=== PATIENT | female | born 1955 | race Hispanic/Latino ===

== ENCOUNTER → 2017-07-14 | Outpatient (CLI) | payer OTHER | END | disposition home or self-care (01) | LOC: RAH 10:08 | PROVIDERS: ATTEND Internal Medicine | DX: Z12.31 Encounter for screening mammogram for malignant neoplasm of breast (principal) | CPT/HCPCS: 77067 ==

== ENCOUNTER → 2017-07-22 | Outpatient (CLI) | payer OTHER | END | disposition home or self-care (01) | LOC: RAH 12:40 | PROVIDERS: ATTEND Internal Medicine | DX: R92.8 Other abnormal and inconclusive findings on diagnostic imaging of breast (principal) | CPT/HCPCS: 76641; 77065 ==

== ENCOUNTER → 2019-05-26 | Outpatient (CLI) | payer MEDICARE | END | disposition home or self-care (01) | LOC: OIH 10:07 | PROVIDERS: ATTEND Internal Medicine | DX: M47.26 Other spondylosis with radiculopathy, lumbar region (principal); M25.552 Pain in left hip; M54.12 Radiculopathy, cervical region | CPT/HCPCS: 72040; 72100; 73502 ==

== ENCOUNTER → 2019-10-26 | Outpatient (CLI) | payer MEDICARE | END | disposition home or self-care (01) | LOC: RAH 08:34 | PROVIDERS: ATTEND Internal Medicine | DX: Z12.31 Encounter for screening mammogram for malignant neoplasm of breast (principal) | CPT/HCPCS: 77067 ==

== ENCOUNTER → 2020-10-25 | Outpatient (CLI) | payer MEDICARE | END | disposition home or self-care (01) | LOC: RAH 11:26 | PROVIDERS: ATTEND Internal Medicine | DX: Z12.31 Encounter for screening mammogram for malignant neoplasm of breast (principal) | CPT/HCPCS: 77067 ==

== ENCOUNTER → 2021-11-02 | Outpatient (CLI) | payer OTHER | END | disposition home or self-care (01) | LOC: RAH 08:20 | PROVIDERS: ATTEND Internal Medicine | DX: Z12.31 Encounter for screening mammogram for malignant neoplasm of breast (principal) | CPT/HCPCS: 77067 ==

== ENCOUNTER → 2022-10-25 | Outpatient (CLI) | payer OTHER | END | disposition home or self-care (01) | LOC: RAH 11:16 | PROVIDERS: ATTEND Internal Medicine | DX: S06.0XAA Concussion with loss of consciousness status unknown, initial encounter (principal); S06.0X9A Concussion with loss of consciousness of unspecified duration, initial encounter; S00.93XA Contusion of unspecified part of head, initial encounter; Z13.820 Encounter for screening for osteoporosis; X58.XXXA Exposure to other specified factors, initial encounter; Y93.89 Activity, other specified; Y92.89 Other specified places as the place of occurrence of the external cause; Y99.8 Other external cause status | CPT/HCPCS: 70450 ==

== ENCOUNTER → 2022-11-13 | Outpatient (CLI) | payer OTHER | END | disposition home or self-care (01) | LOC: RAH 13:56 | PROVIDERS: ATTEND Internal Medicine | DX: Z12.31 Encounter for screening mammogram for malignant neoplasm of breast (principal) | CPT/HCPCS: 77067 ==

== ENCOUNTER → 2023-05-28 | Outpatient (CLI) | payer OTHER | END | disposition home or self-care (01) | LOC: RAH 10:08 | PROVIDERS: ATTEND Internal Medicine | DX: M25.461 Effusion, right knee (principal); M25.462 Effusion, left knee; I73.9 Peripheral vascular disease, unspecified | CPT/HCPCS: 73560 ==

== ENCOUNTER → 2023-06-02 | Outpatient (CLI) | payer OTHER | END | disposition home or self-care (01) | LOC: RAH 14:28 | PROVIDERS: ATTEND Internal Medicine | DX: I70.203 Unspecified atherosclerosis of native arteries of extremities, bilateral legs (principal); M25.469 Effusion, unspecified knee | CPT/HCPCS: 93925 ==

== ENCOUNTER → 2023-07-14 | Outpatient (CLI) | payer OTHER | END | disposition home or self-care (01) | LOC: RAH 13:03 | PROVIDERS: ATTEND Internal Medicine Cardiovascular Disease | DX: Z13.6 Encounter for screening for cardiovascular disorders (principal); R93.1 Abnormal findings on diagnostic imaging of heart and coronary circulation | CPT/HCPCS: 75571 ==

== ENCOUNTER → 2023-11-17 | Outpatient (CLI) | payer OTHER | END | disposition home or self-care (01) | LOC: RAH 08:24 | PROVIDERS: ATTEND Internal Medicine | DX: Z12.31 Encounter for screening mammogram for malignant neoplasm of breast (principal) | CPT/HCPCS: 77067 ==

== ENCOUNTER → 2023-11-26 | Outpatient (CLI) | payer OTHER ==
[2023-11-26 13:53] LABS: BASOPHILS # (AUTO) 0.04 K/uL (0.00-0.20); BASOPHILS % (AUTO) 0.5 % (0.0-5.0); EOSINOPHILS # (AUTO) 0.21 K/uL (0.00-0.70); EOSINOPHILS % (AUTO) 2.5 % (0.0-8.0); IMMATURE GRANULOCYTE ABSOLUTE 0.06 K/uL (0-1); LYMPHOCYTES # (AUTO) 2.2 K/uL (1.0-4.8); LYMPHOCYTES % (AUTO) 25.1 % (21.0-51.0); MEAN CORPUSCULAR HEMOGLOBIN 31.2 pg (27.0-33.0); MEAN CORPUSCULAR HGB CONC 34.8 g/dL (32.0-36.0); MEAN CORPUSCULAR VOLUME 89.7 fL (79-99); MONOCYTES # (AUTO) 0.6 K/uL (0.1-1.0); MONOCYTES % (AUTO) 6.7 % (3.0-13.0); NEUTROPHILS # (AUTO) 5.5 K/uL (1.8-7.7); NEUTROPHILS % (AUTO) 64.5 % (40.0-77.0); PLATELET COUNT (AUTO) 196 K/uL (130-400); RED BLOOD CELL COUNT(AUTO) 4.68 MIL/uL (4.00-5.50); RED CELL DISTRIBUTION WIDTH 12.1 % (11.0-15.5); WHITE BLOOD COUNT (AUTO) 8.6 K/uL (4.8-10.8)
[2023-11-26 14:41] LABS: ALBUMIN 3.4 g/dL (3.5-5.0); BILIRUBIN,TOTAL 0.5 mg/dL (0.2-1.0); CREATININE 1.2 mg/dL (0.5-1.0); POTASSIUM 4.6 mmol/L (3.5-5.1); THYROID STIMULATING HORMONE 4.75 uIU/mL (0.36-3.74); TOTAL PROTEIN, SERUM 6.9 g/dL (6.0-8.3)
== END | disposition home or self-care (01) ==
LOC: LAB 13:30
PROVIDERS: ATTEND Internal Medicine
DX: I10 Essential (primary) hypertension (principal); I63.9 Cerebral infarction, unspecified; R20.0 Anesthesia of skin; E03.9 Hypothyroidism, unspecified
CPT/HCPCS: 36415; 80050; 80053; 84443; 85025

== ENCOUNTER → 2023-11-26 | Outpatient (CLI) | payer OTHER | END | disposition home or self-care (01) | LOC: RAH 13:07 | PROVIDERS: ATTEND Internal Medicine | DX: I63.9 Cerebral infarction, unspecified (principal); R20.0 Anesthesia of skin; I51.7 Cardiomegaly; I70.90 Unspecified atherosclerosis | CPT/HCPCS: 70450 ==

== ENCOUNTER 2024-07-25 11:37 | Emergency (ER) | payer OTHER ==
[~2024-07-25] VITALS: Ht 172.7 cm; Wt 72.6 kg
--- NOTE | 2024-07-25 13:09 | NUR ---
ASSUMED CARE AT THIS TIME
--- NOTE | 2024-07-25 13:16 | ERN ---
ED Note History of Present Illness Stated Complaint: FEVER, COUGH Chief Complaint: Congestion Time Seen by MD: 11:38 Dictation: 68-year-old female with a history of DM presents to the ED for evaluation of cough on and off for the past four weeks. Patient reports nasal congestion, weakness and chest pain due to cough, but denies any other associated symptoms at this time. Patient believes she is dehydrated and feels like she might pass out. Patient mentioned she was seen by PCP and was prescribed Levaquin due to a yeast infection. Allergies: Coded Allergies: No Known Drug Allergies (Unverified Allergy, Unknown, 07/25/24) Home Meds Active Scripts Doxycycline Hyclate (Doxycycline Hyclate) 100 Mg Capsule, 1 CAP PO BID for 10 Days, #20 CAP 0 Refills Prov:GE QUIORGA MD 07/25/24 Past Medical History Past Medical History: Diabetes-Type II Surgical History: Hysterectomy Surgical History Other: CARDIAC STENTS Review of System Dictation Constitutional: Positive for weakness Negative for fever,chills, and weight loss Eyes: Negative for injury, pain,redness, and discharge ENT: Positive for nasal congestion Negative for injury,pain or swelling Cardiovascular: Negative for chest pain, palpitations, and edema Respiratory: Positive for cough, Negative for shortness of breath, and wheezing, Abdomen/GI: Negative for abdominal pain, nausea, vomiting, diarrhea, and constipation Back: Negative for injury and pain : Negative for injury, bleeding and discharge MS/Extremity: Negative for injury and deformity Skin: Negative for rash, and discoloration Neuro: Negative for headache, weakness, numbness, tingling, and seizure Psych: Negative for suicide ideation, homicidal ideation, and hallucinations Initial Vital Sign VS Vital Signs Date Time Temp Pulse Resp B/P (MAP) Pulse Ox O2 Delivery O2 Flow Rate FiO2 07/25/24 11:52 98.4 74 18 151/73 96 0 07/25/24 13:06 Room Air* 21 Physical Exam Dictation General: awake, alert, NAD Head/Face: Normocephalic, atraumatic Eyes: PERRL, EOMI, vision at baseline ENT: oral cavity clear, TMs clear, nasal congestion Neck: Trachea midline, supple, no nuchal rigidity Cardiovascular: RRR, normal S1/S2, No MRGs, no JVD Respiratory: CTAB, no respiratory distress, No rales or wheezes Abdomen: Soft, non-tender, non-distended, normal bowel sounds, no guarding or re bound. Skin: Warm, dry, normal turgor, no rash MS/Extremity: Pulses equal, no cyanosis, neurovascular intact, FROM Neuro: COAx4, GCS 15, strength 5/5, CN 2-12 intact, normal cerebellar exam, normal gait, Psych: Normal behavior, mood, and affect normal Results (Laboratory/Radiology) Laboratory/Radiology Laboratory Tests Test 07/25/24 13:12 07/25/24 13:21 07/25/24 14:01 Influenza Type A Antigen Negative For Type A Influenza Type B Antigen Negative For Type B SARS-CoV-2 Antigen (Rapid) PRESUMPTIVE NEGATIVE Group A Streptococcus Rapid negative (NEGATIVE) White Blood Count 10.3 K/uL (4.8-10.8) Red Blood Count 5.13 MIL/uL (4.00-5.50) Hemoglobin 16.2 g/dL (12.0-16.0) H Hematocrit 48.4 % (36-48) H Mean Corpuscular Volume 94.3 fL (79-99) Mean Corpuscular Hemoglobin 31.6 pg (27.0-33.0) Mean Corpuscular Hemoglobin Concent 33.5 g/dL (32.0-36.0) Red Cell Distribution Width 13.4 % (11.0-15.5) Platelet Count 224 K/uL (130-400) Mean Platelet Volume 10.8 fL (7.5-10.5) H Immature Granulocyte % (Auto) 0.5 % (0-1) Neutrophils (%) (Auto) 63.5 % (40.0-77.0) Lymphocytes (%) (Auto) 28.8 % (21.0-51.0) Monocytes (%) (Auto) 5.5 % (3.0-13.0) Eosinophils (%) (Auto) 1.1 % (0.0-8.0) Basophils (%) (Auto) 0.6 % (0.0-5.0) Neutrophils # (Auto) 6.5 K/uL (1.8-7.7) Lymphocytes # (Auto) 3.0 K/uL (1.0-4.8) Monocytes # (Auto) 0.6 K/uL (0.1-1.0) Eosinophils # (Auto) 0.11 K/uL (0.00-0.70) Basophils # (Auto) 0.06 K/uL (0.00-0.20) Absolute Immature Granulocyte (auto 0.05 K/uL (0-1) Nucleated Red Blood Cells 0.0 % (0.0-0.19) Sodium Level 140 mmol/L (136-145) Potassium Level 3.9 mmol/L (3.5-5.1) Chloride Level 105 mmol/L (101-111) Carbon Dioxide Level 30 mmol/L (21-32) Blood Urea Nitrogen 11 mg/dL (7-18) Creatinine 0.7 mg/dL (0.5-1.0) Glomerular Filtration Rate Calc 94 mL/min (>90) Random Glucose 220 mg/dL (70-105) H Total Calcium 9.3 mg/dL (8.5-10.1) Troponin I High Sensitivity 6 ng/L (4-50) Urine Color COLORLESS (YELLOW) Urine Appearance CLEAR (CLEAR) Urine pH 5.0 (5.0-8.0) Urine Specific [place] 1.012 (1.001-1.031) Urine Protein NEGATIVE mg/dL (NEGATIVE) Urine Glucose (UA) >=1000 mg/dL (NEGATIVE) H Urine Ketones NEGATIVE mg/dL (NEGATIVE) Urine Occult Blood NEGATIVE (NEGATIVE) Urine Nitrate NEGATIVE (NEGATIVE) Urine Bilirubin NEGATIVE mg/dL (NEGATIVE) Urine Urobilinogen 0.2 mg/dL (0.2-1.0) Urine Leukocyte Esterase NEGATIVE Padmini/uL Urine RBC 0-1 /HPF (0-1) Urine WBC 0-1 /HPF (0-1) Urine Squamous Epithelial Cells RARE /HPF (0-2) Urine Bacteria None /HPF (None Seen) Labs Reviewed?: Yes ED Course ED Course Orders Procedure Category Date Status Time Covid19 (Sars Antigen LAB 07/25/24 Complete Rapid) 12:15 Influenza Type A & B, LAB 07/25/24 Complete Rapid 12:15 Rapid (Group A Strep) LAB 07/25/24 Complete 12:15 Chest 1vw RAD 07/25/24 Resulted 12:15 12 Lead Ekg Tracing- EKG 07/25/24 Logged Technical 13:07 Basic Metabolic Panel LAB 07/25/24 Complete 13:07 Cbc With Differential LAB 07/25/24 Complete 13:07 Troponin I High LAB 07/25/24 Complete Sensitivity 13:07 Urinalysis Profile LAB 07/25/24 Complete 13:07 0.9%Nacl 1000ml (Ns PHA 07/25/24 Complete 1000ml) 13:30 Current Medications Medications (Trade) Dose Ordered Sig/Chiquita Route PRN Reason Start Time Stop Time Status Last Admin Dose Admin Sodium Chloride 1,000 ml @ 0 mls/hr ONCE ONCE IV 07/25/24 13:30 07/25/24 13:31 DC 07/25/24 13:24 Vital Signs Date Time Temp Pulse Resp B/P (MAP) Pulse Ox O2 Delivery O2 Flow Rate FiO2 07/25/24 14:46 97.0 81 18 127/62 96 Room Air* 0 21 07/25/24 13:06 97.9 84 20 131/68 96 Room Air* 0 21 07/25/24 11:52 98.4 74 18 151/73 96 0 Medical Decision Making MDM MDM: Differential diagnosis: Sinusitis, viral syndrome, weakness Risk of complication and/or morbidity or mortality of patient management: None Medications-Per medication reconciliation Need for hospitalization: Patient does not meet criteria for hospitalization. Need for emergency major/minor surgery: No There are no social concerns with this patient. Prescription drug management Prescriptions will include symptomatic care I independently interpreted the test that were performed, results were reviewed by me and considered findings on radiology if ordered. DX & DISP Disposition: Discharge Departure Impression: Primary Impression: Acute sinusitis Additional Impression: Acute weakness Condition: Stable Scripts Doxycycline Hyclate (Doxycycline Hyclate) 100 Mg Capsule 1 CAP PO BID for 10 Days, #20 CAP 0 Refills Prov: GE QUIROGA MD 07/25/24 Referrals: CAITLIN ORTIZ MD (PCP) GE QUIROGA MD Jul 25, 2024 13:16
[2024-07-25] MEDS: 0.9%NACL 1000ML 1,000 ML IV ONE (13:24)
--- NOTE | 2024-07-25 13:28 | HMCIMG ---
INDICATION: URI TECHNIQUE: CHEST 1VW COMPARISON: None FINDINGS AND IMPRESSION: Prominent bilateral interstitial markings which may represent bronchitis or vascular congestion in the proper clinical setting. Cardiac silhouette is within normal limits. Mild degenerative changes of the spine. The visualized upper abdomen appears unremarkable.
[2024-07-25 13:31] LABS: BASOPHILS # (AUTO) 0.06 K/uL (0.00-0.20); BASOPHILS % (AUTO) 0.6 % (0.0-5.0); EOSINOPHILS # (AUTO) 0.11 K/uL (0.00-0.70); EOSINOPHILS % (AUTO) 1.1 % (0.0-8.0); HEMATOCRIT 48.4 % (36-48); IMMATURE GRANULOCYTE ABSOLUTE 0.05 K/uL (0-1); LYMPHOCYTES % (AUTO) 28.8 % (21.0-51.0); MEAN CORPUSCULAR HEMOGLOBIN 31.6 pg (27.0-33.0); MEAN CORPUSCULAR HGB CONC 33.5 g/dL (32.0-36.0); MEAN CORPUSCULAR VOLUME 94.3 fL (79-99); MONOCYTES # (AUTO) 0.6 K/uL (0.1-1.0); MONOCYTES % (AUTO) 5.5 % (3.0-13.0); NEUTROPHILS # (AUTO) 6.5 K/uL (1.8-7.7); NEUTROPHILS % (AUTO) 63.5 % (40.0-77.0); PLATELET COUNT (AUTO) 224 K/uL (130-400); RED BLOOD CELL COUNT(AUTO) 5.13 MIL/uL (4.00-5.50); RED CELL DISTRIBUTION WIDTH 13.4 % (11.0-15.5); WHITE BLOOD COUNT (AUTO) 10.3 K/uL (4.8-10.8)
[2024-07-25 13:32] LABS: RAPID GROUP A STREP negative (NEGATIVE)
[2024-07-25 13:40] LABS: INFLUENZA TYPE A Negative For Type A (NEGATIVE); INFLUENZA TYPE B Negative For Type B (NEGATIVE)
[2024-07-25 13:41] LABS: COVID19 (SARS ANTIGEN RAPID) PRESUMPTIVE NEGATIVE (NEGATIVE)
[2024-07-25 13:41] LABS: CREATININE 0.7 mg/dL (0.5-1.0); POTASSIUM 3.9 mmol/L (3.5-5.1)
[2024-07-25 14:22] LABS: APPEARANCE,URINE CLEAR (CLEAR); BILIRUBIN,URINE NEGATIVE (NEGATIVE); COLOR,URINE COLORLESS (YELLOW); GLUCOSE, URINE (UA) >=1000 mg/dL (NEGATIVE); KETONES,URINE NEGATIVE (NEGATIVE); LEUKOCYTE ESTERASE ,URINE NEGATIVE Leu/uL (NEGATIVE); NITRATE,URINE NEGATIVE (NEGATIVE); OCCULT BLOOD,URINE NEGATIVE (NEGATIVE); PROTEIN,URINE NEGATIVE (NEGATIVE); UROBILINOGEN,URINE 0.2 mg/dL (0.2-1.0)
[2024-07-25 14:24] LABS: ADD UA MICROSCOPIC YES
[2024-07-25 14:26] LABS: RBC,URINE 0-1 /HPF (0-1); SQUAMOUS EPITHELIAL CELL,UR RARE /HPF (0-2); WBC,URINE 0-1 /HPF (0-1)
[2024-07-25] MEDS ORDERED: DOXY100C5 PO (14:41)
[2024-07-25 14:46] VITALS: BP 127/62; PULSE 81; RESP 18; TEMP 97; O2SAT 96
--- NOTE | 2024-07-25 18:45 | EKG ---
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
== END 2024-07-25 14:47 | disposition home or self-care (01) ==
LOC: EDH 11:37
DX: J01.90 Acute sinusitis, unspecified (principal); R53.1 Weakness; E11.9 Type 2 diabetes mellitus without complications; Z20.822 Contact with and (suspected) exposure to COVID-19; Z79.899 Other long term (current) drug therapy; Z90.710 Acquired absence of both cervix and uterus; Z95.5 Presence of coronary angioplasty implant and graft
CPT/HCPCS: 99284; 96360; 71045; 87426; 84484; 80048; 85025; 87880; 87804 ×2; 81001; 36415; 93005; J7030